=== PATIENT | female | born 1995 | race Caucasian/White ===

== ENCOUNTER 2016-03-14 19:06 | Emergency (ER) | payer MEDICAID, OTHER ==
[~2016-03-14] VITALS: Ht 162.6 cm; Wt 54.0 kg
[~2016-03-14 19:06] MED LIST: PREN-96 PO
[2016-03-14 19:31] VITALS: BP 134/89
[2016-03-14 22:58] LABS: Urine Bilirubin Negative (Negative); Urine Ca Oxalate Crystal MANY (None Seen); Urine Color Yellow (Yellow); Urine Glucose Normal (Normal); Urine Ketone Negative (Negative); Urine Nitrite Negative (Negative); Urine RBC 3 /hpf (0 - 4); Urine Squamous Epithelial Cell MOD /hpf (<5); Urine Urobilinogen Normal (Negative)
[2016-03-14 22:59] LABS: Urine Blood 3+ /uL (Negative)
== END 2016-03-14 23:36 | disposition left against medical advice (07) ==
LOC: ER 19:21
DX: R51 Headache (principal); M54.2 Cervicalgia; M25.511 Pain in right shoulder; R42 Dizziness and giddiness; M54.9 Dorsalgia, unspecified; Z53.21 Procedure and treatment not carried out due to patient leaving prior to being seen by health care provider; V49.49XA Driver injured in collision with other motor vehicles in traffic accident, initial encounter; Y93.89 Activity, other specified; Y99.8 Other external cause status; Y92.410 Unspecified street and highway as the place of occurrence of the external cause
CPT/HCPCS: 81001; 81025

== ENCOUNTER 2017-01-29 15:39 | Emergency (ER) | payer SELFPAY ==
[~2017-01-29] VITALS: Ht 162.6 cm; Wt 53.1 kg
[2017-01-29 16:08] VITALS: BP 144/97
[2017-01-29] MEDS ORDERED: cefTRIAXone SODIUM 250 MG VL IM ONE (16:30)
== END 2017-01-29 16:52 | disposition home or self-care (01) ==
LOC: ER 15:39
DX: N89.8 Other specified noninflammatory disorders of vagina (principal); Z20.2 Contact with and (suspected) exposure to infections with a predominantly sexual mode of transmission
CPT/HCPCS: 96372; 99283; J0696

== ENCOUNTER 2017-06-18 14:23 | Emergency (ER) | payer MEDICAID ==
[~2017-06-18] VITALS: Ht 162.6 cm; Wt 58.1 kg
[2017-06-18 17:10] VITALS: BP 134/72
[2017-06-18] MEDS ORDERED: ALPRAZolam 0.5 MG TAB PO ONE (17:15)
== END 2017-06-18 17:23 | disposition home or self-care (01) ==
LOC: ER 14:28
DX: F41.9 Anxiety disorder, unspecified (principal); F32.9 Major depressive disorder, single episode, unspecified; F17.210 Nicotine dependence, cigarettes, uncomplicated

== ENCOUNTER 2017-10-17 09:46 | Emergency (ER) | payer MEDICAID ==
[~2017-10-17] VITALS: Ht 162.6 cm; Wt 61.2 kg
[2017-10-17 10:13] LABS: Urine Bacteria None Seen /hpf (None Seen)
[2017-10-17 11:07] LABS: Urine WBC 2 /hpf (0 - 5)
[2017-10-17 11:08] LABS: Urine Blood Normal /uL (Negative)
[2017-10-17 11:12] LABS: Basophils # (auto) 0 uL; Basophils % (auto) 0.4 % (0.0-2.0); Eosinophils # (auto) 0.1 uL; Eosinophils % (auto) 1.6 % (0.0-7.0); Hematocrit 39.6 % (36.0-46.0); Hemoglobin 13.8 g/dL (12.2-16.2); Lymphocytes # (auto) 1.4 uL; Lymphocytes % (auto) 22.6 % (10.0-50.0); Mean Corpuscular Hemoglobin 32.9 pg (28.0-32.0); Mean Corpuscular Hgb Conc. 34.8 g/dL (32.0-36.0); Mean Corpuscular Volume 94.5 fL (80.0-100.0); Monocytes # (auto) 0.3 uL; Monocytes % (auto) 5.3 % (0.0-12.0); Neutrophils # (auto) 4.5 uL; Neutrophils % (auto) 70.1 % (37.0-80.0); Platelet Count (auto) 234 10^3/uL (140-450); Red Blood Cells 4.19 10^6/uL (4.0-5.20); Red Cell Distribution Width 12.8 % (11.8-14.3); White Blood Cell 6.4 10^3/uL (4.4-10.8)
[2017-10-17 13:23] VITALS: BP 110/41
== END 2017-10-17 13:27 | disposition home or self-care (01) ==
LOC: ER 09:56
DX: O20.0 Threatened abortion (principal); O99.331 Smoking (tobacco) complicating pregnancy, first trimester; Z3A.13 13 weeks gestation of pregnancy
CPT/HCPCS: 36415; 76801; 81001; 84702; 85025

== ENCOUNTER 2017-11-14 16:33 | Emergency (ER) | payer MEDICAID ==
[~2017-11-14] VITALS: Ht 162.6 cm; Wt 63.5 kg
[2017-11-14 16:45] VITALS: BP 133/95
== END 2017-11-14 21:57 | disposition home or self-care (01) ==
LOC: EDBD 16:33 → ER 16:41
DX: S61.511A Laceration without foreign body of right wrist, initial encounter (principal); F17.210 Nicotine dependence, cigarettes, uncomplicated; W25.XXXA Contact with sharp glass, initial encounter; Y93.39 Activity, other involving climbing, rappelling and jumping off; Y99.8 Other external cause status; Y92.89 Other specified places as the place of occurrence of the external cause
CPT/HCPCS: 12031

== ENCOUNTER 2017-12-22 12:50 | Emergency (ER) | payer MEDICAID ==
[~2017-12-22] VITALS: Ht 162.6 cm; Wt 63.5 kg
[2017-12-22 14:44] LABS: Urine Bacteria MOD /hpf (None Seen); Urine Blood Negative /uL (Negative); Urine Mucus MANY (None Seen); Urine Specific Gravity 1.028 (1.001-1.035); Urine WBC 181 /hpf (0 - 5)
[2017-12-22 16:18] VITALS: BP 124/74
== END 2017-12-22 16:21 | disposition home or self-care (01) ==
LOC: ER 12:54
DX: O23.42 Unspecified infection of urinary tract in pregnancy, second trimester (principal); O99.332 Smoking (tobacco) complicating pregnancy, second trimester; O99.322 Drug use complicating pregnancy, second trimester; F12.10 Cannabis abuse, uncomplicated; Z3A.17 17 weeks gestation of pregnancy
CPT/HCPCS: 36415; 81001; 84702

== ENCOUNTER 2018-03-03 08:45 | Observation (INO) | payer MEDICAID ==
[2018-03-03 09:30] LABS: Urine Bacteria NONE SEEN /hpf (None Seen); Urine Blood Negative /uL (Negative); Urine Mucus FEW (None Seen); Urine WBC 2 /hpf (0 - 5)
[2018-03-03 09:32] LABS: Alcohol, Urine < 3.0 mg/dL (0-5); Amphetamine Screen, Urine NEGATIVE (NEGATIVE); Barbiturate Scree,Urine NEGATIVE (NEGATIVE); Benzodiazephine Screen, Urine NEGATIVE (NEGATIVE); Cannabinoid Screen, Urine POSITIVE (NEGATIVE); Cocaine Screen, Urine NEGATIVE (NEGATIVE); Opiate Scree,Urine NEGATIVE (NEGATIVE); Phencyclidine Screen, Urine NEGATIVE (NEGATIVE)
[2018-03-03 12:29] LABS: Albumin 2.6 g/dL (3.4-5.0); Calcium 8.4 mg/dL (8.5-10.1)
[2018-03-03 12:31] LABS: BUN/Creatinine Ratio 12.5; Bilirubin, Total 0.8 mg/dL (0.2-1.0); Total Protein 6.6 g/dL (6.4-8.2)
== END 2018-03-03 11:56 | disposition home or self-care (01) | DRG 566 ==
LOC: LDRP 08:45
PROVIDERS: ADMIT Specialist; ATTEND Specialist
DX: O43.113 Circumvallate placenta, third trimester (principal); N13.30 Unspecified hydronephrosis; O99.323 Drug use complicating pregnancy, third trimester; O26.893 Other specified pregnancy related conditions, third trimester; O99.89 Other specified diseases and conditions complicating pregnancy, childbirth and the puerperium; M54.9 Dorsalgia, unspecified; R10.30 Lower abdominal pain, unspecified; F12.90 Cannabis use, unspecified, uncomplicated; Z3A.36 36 weeks gestation of pregnancy; Z87.891 Personal history of nicotine dependence
CPT/HCPCS: 36415; 59025; 76775; 80053; 80307; 81001; 81002; G0378

== ENCOUNTER 2018-03-19 20:30 | Observation (INO) | payer MEDICAID ==
[~2018-03-19] VITALS: Ht 162.6 cm; Wt 68.0 kg
== END 2018-03-19 22:52 | disposition home or self-care (01) | DRG 565 ==
LOC: LDRP 20:30
PROVIDERS: ADMIT Obstetrics & Gynecology; ATTEND Obstetrics & Gynecology
DX: O47.1 False labor at or after 37 completed weeks of gestation (principal); O26.893 Other specified pregnancy related conditions, third trimester; F12.90 Cannabis use, unspecified, uncomplicated; O46.93 Antepartum hemorrhage, unspecified, third trimester; O99.343 Other mental disorders complicating pregnancy, third trimester; R11.0 Nausea; Z87.891 Personal history of nicotine dependence; Z3A.38 38 weeks gestation of pregnancy
CPT/HCPCS: 59025; 76815; 81002; G0378

== ENCOUNTER 2018-04-02 11:10 | Observation (INO) | payer MEDICAID | END 2018-04-02 13:10 | disposition home or self-care (01) | DRG 566 | LOC: LDRP 11:10 | PROVIDERS: ADMIT Specialist; ATTEND Specialist | DX: O46.93 Antepartum hemorrhage, unspecified, third trimester (principal); O26.893 Other specified pregnancy related conditions, third trimester; R10.30 Lower abdominal pain, unspecified; Z87.891 Personal history of nicotine dependence; Z3A.38 38 weeks gestation of pregnancy | CPT/HCPCS: 59025; 76818; 81002; G0378 ==

== ENCOUNTER 2018-04-27 13:37 | Emergency (ER) | payer MEDICAID ==
[~2018-04-27] VITALS: Ht 162.6 cm; Wt 59.0 kg
[2018-04-27 15:00] VITALS: BP 141/66
[2018-04-27 15:06] LABS: Basophils # (auto) 0 uL; Basophils % (auto) 0.6 % (0.0-2.0); Eosinophils # (auto) 0.5 uL; Eosinophils % (auto) 6.1 % (0.0-7.0); Hematocrit 43.3 % (36.0-46.0); Hemoglobin 14.6 g/dL (12.2-16.2); Lymphocytes # (auto) 2.8 uL; Lymphocytes % (auto) 35.7 % (10.0-50.0); Mean Corpuscular Hemoglobin 32.1 pg (28.0-32.0); Mean Corpuscular Hgb Conc. 33.7 g/dL (32.0-36.0); Mean Corpuscular Volume 95.2 fL (80.0-100.0); Monocytes # (auto) 0.4 uL; Monocytes % (auto) 5.6 % (0.0-12.0); Nucleated Red Blood Cells % 0.1 %; Platelet Count (auto) 290 10^3/uL (140-450); Red Blood Cells 4.55 10^6/uL (4.0-5.20); Red Cell Distribution Width 12.6 % (11.8-14.3); White Blood Cell 7.8 10^3/uL (4.4-10.8)
[2018-04-27 15:45] LABS: INR 0.93 (0.9-1.15); Partial Thromboplastin Time 27.8 sec (23.78-33.04)
== END 2018-04-27 17:06 | disposition left against medical advice (07) ==
LOC: ER 13:39
DX: O72.2 Delayed and secondary postpartum hemorrhage (principal)
CPT/HCPCS: 36415; 76856; 84702; 85025; 85610; 85730